=== PATIENT | female | born 1975 | race Hispanic/Latino ===

== ENCOUNTER 2018-01-16 14:39 | Emergency (ER) | payer SELFPAY ==
[2018-01-16 15:12] LABS: Bilirubin Negative (Negative); Blood, Urine Large (Negative); Clarity CLOUDY (Clear); Glucose, Urine (Dipstick) Negative (Negative); Leukocyte Large (Negative); Nitrite Positive (Negative); Protein, Urine (Dipstick) 300 mg/dL (Neg-Trace); Specific Gravity, Urine 1.006 (1.002-1.036); pH, Urine 5.5 (5.0-9.0)
[2018-01-16 15:16] LABS: Pregnancy Test - Urine (BHCG) Negative (Negative); Pregu Control Background? CLEAR/WHITE (CLR/WHITE); Pregu Control Bar Appear? YES (CONTROL BAR); Specific Gravity 1.006 (1.002-1.036)
[2018-01-16 15:17] LABS: Hyaline Casts/LPF 0-3 HYALINE CAST LPF (0-3 Hyaline); Pathc Cast-AUWi Flag 0.29 (0-2.49); Squamous Epithelial 0-3 HPF (0-3)
[2018-01-16 15:19] LABS: Yeast-AUWi Flag 67.7 (0-25.0)
[2018-01-16 15:28] LABS: Bacteria/HPF Rare-Few HPF (None Seen); Yeast-All Forms None Seen HPF (None Seen)
[2018-01-16] MEDS ORDERED: Lidocaine 1% PF 5 ML VIAL ONE (15:38)
[2018-01-16] MEDS ORDERED: cefTRIAXone\\ROCEPHIN 1 GM VIAL ONE (15:38)
== END 2018-01-16 16:10 | disposition home or self-care (01) ==
LOC: ERS 14:39
DX: N39.0 Urinary tract infection, site not specified (principal)
CPT/HCPCS: 81003; 81015; 81025; 87086; 96372; J0696; J2001

== ENCOUNTER 2021-06-26 23:31 | Emergency (ER) | payer OTHER, SELFPAY ==
[2021-06-27 00:32] LABS: #Monocytes 0.4 thou/uL (0.11-0.59); #Neutrophils 5.8 thou/uL (1.40-6.50); %Basophils 0.5 % (0.0-1.0); %Eosinophils 0.3 % (0.0-10.0); %Lymphocytes 13.8 % (21.0-51.0); %Monocytes 6.1 % (0.0-10.0); %Neutrophils 79.4 % (42.0-75.0); Hemoglobin 13.1 g/dL (12.0-16.0); Mean Corpuscular HGB CONC 33.2 g/dL (32.0-36.0); Mean Corpuscular Hemoglobin 29.2 pg (27.0-31.0); Mean Platelet Volume 6.6 fL (7.4-10.4); Platelet Count 331 thou/uL (130-400); RBC Distribution Width 12.9 % (11.5-14.5); Red Blood Cell (RBC) Count 4.49 mill/uL (4.20-5.40); White Blood Cell (WBC) Count 7.3 thou/uL (4.8-10.8)
[2021-06-27 00:56] LABS: ALT (SGPT) 29 U/L (8-55); AST (SGOT) 34 U/L (5-34); Alkaline Phosphatase 57 U/L (40-110); Anion Gap 14 mmol/L (10-20); BUN (Urea Nitrogen) 10 mg/dL (7.0-18.7); Bilirubin, Total 0.5 mg/dL (0.2-1.2); Calc. Creatinine Clearance 0 mL/min (70-130); Calcium 7.9 mg/dL (7.8-10.44); Carbon Dioxide 20 mmol/L (22-29); Chloride 104 mmol/L (98-107); Globulin 2.6 g/dL (2.4-3.5); Glucose 109 mg/dL (70-105); Lipase 26 U/L (8-78); Protein, Total 6.6 g/dL (6.0-8.3); Sodium 135 mmol/L (136-145)
[2021-06-27] MEDS ORDERED: Ondansetron PF 4 MG/2 ML Vial ONE (02:02)
[2021-06-27] MEDS ORDERED: Potassium Chloride 20 MEQ TAB ONE (02:02)
== END 2021-06-27 03:02 | disposition home or self-care (01) ==
LOC: ERS 23:31
DX: K52.9 Noninfective gastroenteritis and colitis, unspecified (principal); B34.9 Viral infection, unspecified; R73.03 Prediabetes
CPT/HCPCS: 36415; 80053; 83690; 85025; 96374; J2405